=== PATIENT | female | born 1955 | race Caucasian/White ===

== ENCOUNTER 2017-01-20 10:15 | Outpatient (CLI) | payer BC ==
--- NOTE | 2017-01-21 15:33 | DEXA Report ---
DEXA SCAN: 01/20/2017 CLINICAL INDICATION: Postmenopausal. TECHNIQUE: Dual energy x-ray absorptiometry (DXA) was performed on a [employer] system. Regions measured are the AP spine, femoral neck, and, if needed, forearm. COMPARISON: None. In accordance with the International Society for Clinical Densitometry (ISCD) guidelines, data from previous exams may be reanalyzed using current recommendations and techniques. This is done to allow a more accurate basis for comparison with the current study. FINDINGS The data for the lumbar spine is as follows: REGION BMD (g/cm/cm) T-SCORE Z-SCORE L1 1.134 0.0 1.1 L2 1.227 0.2 1.3 L3 1.349 1.2 2.3 L4 1.263 0.5 1.6 TOTAL 1.248 0.6 1.6 NOTE: All evaluable vertebrae are used for classification. The data for the hip is as follows: REGION BMD (g/cm/cm) T-SCORE Z-SCORE Neck 0.913 -0.9 0.2 TOTAL 0.991 -0.1 0.7 NOTE: The femoral neck or total proximal femur, whichever is lowest, is used for classification. IMPRESSION: THE WHO CLASSIFICATION BASED ON THE INTERNATIONAL REFERENCE STANDARD IS NORMAL. THE FRACTURE RISK IS NOT INCREASED. RECOMMENDATION: Patients with diagnosis of osteoporosis or osteopenia should have regular bone mineral density assessment. For those eligible for Medicare, routine testing is allowed once every 2 years. Testing frequency can be increased for patients who have rapidly progressing disease or for those who are receiving medical therapy to restore bone mass. COMMENT: World Health Organization (WHO) definitions for osteoporosis and osteopenia: NORMAL BMD: T-score at -1.0 or higher, fracture risk is low. OSTEOPENIA BMD: T-score between -1.0 and -2.5, fracture risk is increased. OSTEOPOROSIS BMD: T-score at -2.5 or lower, fracture risk high. National Osteoporosis Foundation recommends: 1. Obtain adequate dietary calcium (at least 1200 mg per day) and vitamin D (400 -800 international units per day). 2. Participate, as appropriate, in regular weightbearing and muscle- strengthening exercise. 3. Avoid tobacco use and reduce alcohol and caffeine intake. 4. For more detailed information see the website at www.NOF.org. MTDD
== END 2017-01-20 10:16 | disposition home or self-care (01) ==
LOC: DI 10:15
PROVIDERS: ATTEND Physician Assistant
DX: Z13.820 Encounter for screening for osteoporosis (principal); Z78.0 Asymptomatic menopausal state
CPT/HCPCS: 77080

== ENCOUNTER 2017-01-20 10:17 | Outpatient (CLI) | payer BC ==
--- NOTE | 2017-01-21 12:57 | Mammography Report ---
DIGITAL SCREENING MAMMOGRAM: 01/20/2017 CLINICAL INDICATION: A 61-year-old nulliparous patient, for screening. COMPARISON: 12/2015, 07/2014, 09/2012, 07/2010, 09/2009. TECHNIQUE: Routine CC and MLO projections were obtained of the breasts. FINDINGS: Scattered fibroglandular tissue is present within the breasts. There are no dominant sydney s, suspicious microcalcifications, or secondary signs of malignancy. In comparison to the previous st udies, there are no significant changes. ASSESSMENT: NO MAMMOGRAPHIC EVIDENCE OF MALIGNANCY. NO SIGNIFICANT INTERVAL CHANGES. RECOMMENDATION: Screening mammography is recommended annually. BIRADS category 1 - negative. STANDARD QUALIFYING STATEMENTS 1. This examination was reviewed with the aid of Computed-Aided Detection (CAD). 2. A negative or benign imaging report should not delay biopsy if clinically suspicious findings are present. Consider surgical consultation if warranted. More than 5% of cancers are not identified by i maging. 3. Dense breasts may obscure an underlying neoplasm. JOB #: [id number] EXT JOB #:[id number]
== END 2017-01-20 10:18 | disposition home or self-care (01) ==
LOC: DI 10:17
PROVIDERS: ATTEND Physician Assistant
DX: Z12.31 Encounter for screening mammogram for malignant neoplasm of breast (principal)
CPT/HCPCS: 77067

== ENCOUNTER 2017-08-08 09:44 | Outpatient (CLI) | payer BC | END 2017-08-08 09:45 | disposition critical access hospital (66) | LOC: EMS 09:44 | PROVIDERS: ATTEND Surgery | DX: R42 Dizziness and giddiness (principal); R11.2 Nausea with vomiting, unspecified | CPT/HCPCS: A0425; A0427 ==

== ENCOUNTER 2017-08-08 10:11 | Emergency (ER) | payer BC ==
[2017-08-08] MEDS ORDERED: MECLIZINE 12.5 MG TABLET PO STA (10:17)
--- NOTE | 2017-08-08 10:20 | ED Physician Documentation ---
History of Present Illness - Stated complaint Stated Complaint: N/V - Chief complaint Chief Complaint: Neuro - Additonal information Additional information: hx from pt 62 y/o f healthy except hypothyroid fhx brain aneurysm and glioblastoma - pt has screening MRI many yr ago that was fine to ED today BIBA with acute onset vertigo with NV hx one similar milder episode a few wk ago no ESPAÑA no focal numbness or weakness Review of Systems Constitutional: denies: Fever Eyes: denies: Loss of vision Ears: denies: Loss of hearing, Tinnitus/ringing GI: reports: Nausea, Vomiting Neurologic: denies: Focal weakness, Numbness, Difficulty speaking, Headache Endocrine: denies: Easy bruising / bleeding Immunocompromised: denies: Immunocompromised PD PAST MEDICAL HISTORY - Present Medications Home Medications: Ambulatory Orders Medication Instructions Recorded Confirmed Levothyroxine [Synthroid] 100 mcg 08/08/17 Meclizine [Antivert] 25 mg PO Q6H PRN #20 tablet 08/08/17 Ondansetron Odt [Zofran] 4 mg TL Q6H PRN #10 tablet 08/08/17 - Allergies Allergies/Adverse Reactions: Allergies Allergy/AdvReac Type Severity Reaction Status Date / Time No Known Drug Allergies Allergy Verified 08/08/17 10:17 PD ED PE NORMAL - Vitals Vital signs reviewed: Yes - General General: Alert and oriented X 3 - HEENT HEENT: PERRL, EOMI (horiz nystagmus looking right) - Neck Neck: Supple, no meningeal sign - Cardiac Cardiac: RRR - Respiratory Respiratory: No respiratory distress, Clear bilaterally - Abdomen Abdomen: Soft, Non tender - Derm Derm: Normal color - Neuro Neuro: Alert and oriented X 3, 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, No sensory deficit, Normal speech Eye Opening: Spontaneous Motor: Obeys Commands Verbal: Oriented GCS Score: 15 Results - Vitals Vitals: Vital Signs - 24 hr 08/08/17 10:14 Temperature 36.1 C L Heart Rate 79 Respiratory 16 Rate Blood Pressure 136/69 H O2 Saturation 100 Oxygen O2 Source Room air - Rads (name of study) CTH Radiology: See rad report (neg) PD MEDICAL DECISION MAKING - ED course ED course: sx persist despite meclizine given fhx as in HPI got CT head - it was neg sx did gradually improve and pt now ambulatory Departure - Departure Disposition: 01 Home, Self Care Clinical Impression: Vertigo Condition: Good Instructions: ED Vertigo Unspecified Prescriptions: Meclizine [Antivert] 25 mg PO Q6H PRN #20 tablet PRN Reason: Dizziness Ondansetron Odt [Zofran] 4 mg TL Q6H PRN #10 tablet PRN Reason: Nausea / Vomiting Comments: The CT scan was fine Most commonly vertigo is caused by an inner ear problem and resolves with time Doing the exercises we gave you a hand out for can sometimes help roll any particulate matter out of the sensory balance chambers of your ear and help resolve the symptoms I have also prescribed zofran for vomiting and meclizine for dizziness No driving until you feel better and are not needing medications Consider using a cane or walker for extra safety until you feel better Forms: Activity restrictions
--- NOTE | 2017-08-08 11:45 | CT Preliminary Report ---
Exam: CT HEAD W/O IMPRESSION: 1. Negative noncontrast brain CT. No intracranial hemorrhage, mass, or obvious CT signs of acute infa rct. [facility] SITE ID: [id number]
--- NOTE | 2017-08-08 11:45 | CT Report ---
EXAM: CT HEAD EXAM DATE: 08/08/2017 11:37 AM. CLINICAL HISTORY: Vertigo. Family history of glioblastoma and aneurysm. COMPARISON: None. TECHNIQUE: Multiaxial CT images were obtained from the foramen magnum to the vertex. Reformats: Coron al. IV contrast: None. In accordance with CT protocol optimization, one or more of the following dose reduction techniques w ere utilized for this exam: automated exposure control, adjustment of mA and/or KV based on patient s ize, or use of iterative reconstructive technique. FINDINGS: Parenchyma: No intraparenchymal hemorrhage. No focal mass effect, midline shift, or CT findings of ac elizabeth infarction. Graff-white differentiation is distinct. Extraaxial Spaces: Normal for age. No subdural or epidural collections identified. Ventricles: Normal in size and position. Sinuses and Orbits: Imaged paranasal sinuses, orbits, and mastoids show no significant abnormality. Bones: No evidence of fracture or calvarial defect. IMPRESSION: 1. Negative noncontrast brain CT. No intracranial hemorrhage, mass, or obvious CT signs of acute infa rct. [facility] Referring Provider Line: [phone] SITE ID: [id number]
[2017-08-08 13:26] VITALS: BP 137/73
== END 2017-08-08 13:29 | disposition home or self-care (01) ==
LOC: EDUNIT# → ED 10:11
DX: R42 Dizziness and giddiness (principal); E03.9 Hypothyroidism, unspecified; Z82.49 Family history of ischemic heart disease and other diseases of the circulatory system; Z80.8 Family history of malignant neoplasm of other organs or systems
CPT/HCPCS: 70450; 99283; A9270

== ENCOUNTER 2018-08-07 15:06 | Outpatient (CLI) | payer BC ==
--- NOTE | 2018-08-08 14:16 | Mammography Report ---
Reason: SCREENING MAMMO Procedure Date: 08/07/2018 Accession Number: [id number] / [id number] Procedure: TOO - Screening Mammo w/Mario CPT Code: FULL RESULT: EXAM: Screening Mammo w/Mario DATE: 08/07/2018 3:45 PM CLINICAL HISTORY: Routine screening TECHNIQUE: (B) - Bilateral CC and MLO views were obtained. COMPARISON: 01/20/2017, 12/18/2015, 07/26/2014 and 09/29/2012 PARENCHYMAL PATTERN: (A) - The breasts demonstrate scattered fibroglandular densities bilaterally. FINDINGS: There is no significant interval change. There are no suspicious masses, calcifications, or areas of distortion. IMPRESSION: Negative examination. BI-RADS category 1. RECOMMENDATION: (ANNUAL) - Recommend routine annual screening mammography. BI-RADS CATEGORY: (1) - Negative. STANDARD QUALIFYING STATEMENTS: 1. This examination was not reviewed with the aid of Computer-Aided Detection (CAD). 2. A negative or benign imaging report should not preclude biopsy if clinically suspicious findings are present. 3. Dense breasts may obscure an underlying neoplasm. 4. This examination was reviewed with the aid of 3D breast imaging (tomosynthesis).
== END 2018-08-07 15:07 | disposition home or self-care (01) ==
LOC: DI 15:06
PROVIDERS: ATTEND Physician Assistant
DX: Z12.31 Encounter for screening mammogram for malignant neoplasm of breast (principal)
CPT/HCPCS: 77063; 77067

== ENCOUNTER 2020-02-24 13:02 | Outpatient (CLI) | payer BC ==
--- NOTE | 2020-02-25 14:05 | Mammography Report ---
BILATERAL DIGITAL SCREENING MAMMOGRAM 3D/2D: 02/24/2020 CLINICAL: Routine screening. Comparison is made to exams dated: 08/07/2018 mammogram, 01/20/2017 mammogram, 12/18/2015 mammogram, 07/16/2014 mammogram, 09/29/2012 mammogram, and 07/17/2010 mammogram - [facility]. The ti ssue of both breasts is predominantly fatty. No significant masses, calcifications, or other findings are seen in either breast. There has been no significant interval change. IMPRESSION: NEGATIVE There is no mammographic evidence of malignancy. A 1 year screening mammogram is recommended. This exam was interpreted at Station ID: [id number]. NOTE: For mammograms, a report in lay terms will be sent to the patient. Approximately 15% of breast malignancies will not be visualized mammographically. In the management of a palpable breast mass, a negative mammogram must not discourage biopsy of a clinically suspicious lesion. Electronically Signed By: Yuan Webb acr/penrad:02/24/2020 18:39:43 ACR BI-RADS Category 1: Negative 3341F PARENCHYMAL PATTERN: (F) - The breast(s) demonstrate(s) diffuse fatty replacement. BI-RADS CATEGORY: (1) - 1 RECOMMENDATION: (ANNUAL) - Recommend routine annual screening mammography. [id number] 1 year screening LATERALITY: (B)
== END 2020-02-24 13:03 | disposition home or self-care (01) ==
LOC: DI 13:02
PROVIDERS: ATTEND Registered Nurse
DX: Z12.31 Encounter for screening mammogram for malignant neoplasm of breast (principal)
CPT/HCPCS: 77063; 77067

== ENCOUNTER 2022-06-25 08:16 | Outpatient (CLI) | payer BC, MEDICARE ==
--- NOTE | 2022-06-25 11:02 | Ultrasound Report ---
LIMITED ULTRASOUND OF LEFT BREAST: 06/25/2022 CLINICAL: Palpable left breast lump by physician. Comparison is made to exams dated: 02/24/2020 mammogram, 08/07/2018 mammogram, 01/20/2017 mammogram, 12/18/2015 mammogram, 07/16/2014 mammogram, and 09/29/2012 mammogram - [facility]. Color flow ultrasound of the left breast 12 o'clock region was performed. Graff scale images of the real-time examination were reviewed. No significant abnormalities were seen sonographically in the left breast. Specifically, no finding to correspond to the patient's palpable abnormality. IMPRESSION: NEGATIVE There is no sonographic correlate to the patient's palpable abnormality and no evidence of malignancy . Return to annual mammogram screening schedule is recommended. Findings and recommendations were conveyed to the patient at time of exam. This exam was interpreted at Station ID: [id number]. Electronically Signed By: Lauren zimmerman/:06/25/2022 09:07:07 Ultrasound BI-RADS: 1 Negative BI-RADS CATEGORY: (1) - 1 Mammogram [id number] 1 year screening LATERALITY: (B)
--- NOTE | 2022-06-25 11:02 | Mammography Report ---
BILATERAL DIGITAL DIAGNOSTIC MAMMOGRAM 3D/2D: 06/25/2022 CLINICAL: Due for bilateral imaging. Palpable left breast lump by physician. Comparison is made to exams dated: 02/24/2020 mammogram, 08/07/2018 mammogram, 01/20/2017 mammogram, 12/18/2015 mammogram, and 07/16/2014 mammogram - [facility]. There are scattered areas of fibroglandular density in both breasts (category b / 25%-50% glandular t issue). No significant masses, calcifications, or other findings are seen in either breast. Specifically, no finding to correspond to the patient's palpable abnormality. Mammograms are otherwise stable. IMPRESSION: INCOMPLETE: NEEDS ADDITIONAL IMAGING EVALUATION There is no abnormality seen in the left breast to correspond with the palpable abnormality at 12 o'c lock in the middle depth which is probably normal fibroglandular tissue. Ultrasound is recommended f or full evaluation of this area. This was performed immediately following this exam. Based on the Tyrer Cuzick model (a risk assessment model) the patients lifetime risk is 8.4% and her 10 year risk is 4.1%. According to the ACR, ACS, and NCCN guidelines, an annual breast MRI exam alex g with mammogram is recommended if the patients lifetime risk is 20% or greater. This exam was interpreted at Station ID: [id number]. NOTE: For mammograms, a report in lay terms will be sent to the patient. Approximately 15% of breast malignancies will not be visualized mammographically. In the management of a palpable breast mass, a negative mammogram must not discourage biopsy of a clinically suspicious lesion. Electronically Signed By: Lauren zimmerman/:06/25/2022 08:49:54 ACR BI-RADS Category 0: Incomplete 3340F PARENCHYMAL PATTERN: (A) - The breast(s) demonstrate(s) scattered fibroglandular densities. BI-RADS CATEGORY: (0) - 0 Ultrasound [id number] Immediate follow-up LATERALITY: (B)
== END 2022-06-25 08:17 | disposition home or self-care (01) ==
LOC: DI 08:16
PROVIDERS: ATTEND Registered Nurse
DX: N63.25 Unspecified lump in the left breast, overlapping quadrants (principal)